=== PATIENT | male | born 1940 | race Two or more races ===

== ENCOUNTER 2022-12-11 11:35 | Emergency (ER) | payer OTHER ==
[~2022-12-11] VITALS: Ht 160 cm; Wt 74.8 kg
== END 2022-12-11 12:57 | disposition home or self-care (01) ==
LOC: ER 11:35
DX: Z46.6 Encounter for fitting and adjustment of urinary device (principal)

== ENCOUNTER 2022-12-12 07:36 | Emergency (ER) | payer OTHER ==
[~2022-12-12] VITALS: Ht 165.1 cm; Wt 61.2 kg
== END 2022-12-12 10:22 | disposition home or self-care (01) ==
LOC: ER 07:36
DX: N39.0 Urinary tract infection, site not specified (principal); C61 Malignant neoplasm of prostate

== ENCOUNTER 2023-05-19 13:31 | Inpatient (IN) | payer OTHER ==
[~2023-05-19] VITALS: Ht 165.1 cm; Wt 61.2 kg
[2023-05-19] MEDS ORDERED: ABIRATERONE AC250 MG PO (13:47)
[2023-05-19] MEDS ORDERED: MILLIPRED5 MG PO (13:48)
--- NOTE | 2023-05-19 13:54 | NUR ---
SE RECIBE PACIENTE ALERTA Y ORIENTADO X3 ACOMPANADO POR LA HIJA LA MISMA REFIERE QUE EL ES CANCER PROTATICO METASTIZADO Y TIENE LA PIERNA DERECHA INFLAMADA DESDE HACE 2 SEMANAS, EN EL KAI DE DOY LA HIJA OBSERVO INFLAMACION HASTA LA ESPALDA.
--- NOTE | 2023-05-19 14:36 | NUR ---
PTE EVALUADO POR EL DA ORDEN DE TX MEDICO. SE ORIENTA A FAMILIAR SOBRE [place] MEDICO Y ESTA REFIERE ENTENDER Y ACEPTAR. SE COLECTAN MUESTRAS LIZ ORDEN MEDICA USANDO MEDIDAS ASEPTICAS.
--- NOTE | 2023-05-19 17:12 | NUR ---
SE LLAMA A BANCO DE CIPRIANO PARA NOTIFICAR 2 U PRBC. SE NOTIFICA EL MISMO A MR VALLEJO @ 5:13 PM.
[2023-05-30] MEDS ORDERED: PREDNISONE 5MG PO (13:56)
[2023-05-30] MEDS ORDERED: Neurin-Sl Tablet Sl SL (13:56)
[2023-05-30] MEDS ORDERED: LEVOFLOXACIN250 MG PO (13:57)
[2023-05-30] MEDS ORDERED: B Complex PO (13:57)
[2023-05-30] MEDS ORDERED: PROTEINEX-18 LI30 ML PO (13:57)
== END 2023-05-30 21:29 | disposition home or self-care (01) | DRG 723 ==
LOC: ER 13:31 → MEDJ 20:39
PROVIDERS: General Practice; Internal Medicine Infectious Disease; ADMIT Internal Medicine; ATTEND Internal Medicine
PROC: B54BZZZ Ultrasonography of Right Lower Extremity Veins (ICD-10-PCS; 2023-05-19)
PROC: BW21ZZZ Computerized Tomography (CT Scan) of Abdomen and Pelvis (ICD-10-PCS; 2023-05-19)
PROC: 30233N1 Transfusion of Nonautologous Red Blood Cells into Peripheral Vein, Percutaneous Approach (ICD-10-PCS; principal; 2023-05-20)
PROC: 4A12X4Z Monitoring of Cardiac Electrical Activity, External Approach (ICD-10-PCS; 2023-05-20)
PROC: 8E0ZXY6 Isolation (ICD-10-PCS; 2023-05-20)
PROC: 06H03DZ Insertion of Intraluminal Device into Inferior Vena Cava, Percutaneous Approach (ICD-10-PCS; 2023-05-26)
DX: C79.82 Secondary malignant neoplasm of genital organs (principal); C78.7 Secondary malignant neoplasm of liver and intrahepatic bile duct; C79.19 Secondary malignant neoplasm of other urinary organs; C79.51 Secondary malignant neoplasm of bone; N39.0 Urinary tract infection, site not specified; N17.8 Other acute kidney failure; I82.811 Embolism and thrombosis of superficial veins of right lower extremity; I82.431 Acute embolism and thrombosis of right popliteal vein; I82.441 Acute embolism and thrombosis of right tibial vein; N13.39 Other hydronephrosis; D63.0 Anemia in neoplastic disease; D64.89 Other specified anemias; G72.89 Other specified myopathies; N18.9 Chronic kidney disease, unspecified; B96.89 Other specified bacterial agents as the cause of diseases classified elsewhere; Z79.01 Long term (current) use of anticoagulants